=== PATIENT | male | born 1985 ===

== ENCOUNTER 2023-05-06 21:52 | Inpatient (IN) | payer MEDICAID, OTHER, SELFPAY ==
[2023-05-07 00:01] VITALS: BP 127/90; PULSE 62; RESP 18; TEMP 36.7; O2SAT 96
[2023-05-07 00:11] VITALS: BMI 30.7
--- NOTE | 2023-05-07 03:57 | PC.ADMIT ---
Patient is a 38yr old Belgian speaking male who also speaks fluent [place]. He arrived to from [facility] d/t bizarre behavior and thoughts of self harm. His family was concerned for his well being as well as theirs and the patient was brought to the hospital by police and is a section 12. The patient lives with his girlfriend and his . The patients mother who is on a visa from [place] also stays with them to help with the baby. The patient states his girlfriends sister and her son also stay with them in an apartment. The patient arrived to hospital attire, neat/well groomed, appears slightly anxious but cooperative and pleasant. Skin check administrered as well as vitals. The patient currently denies thoughts of self harm. He states he is here because of his alcohol intake. He states he drinks every few days and has a a few beers and a few nips . He is gaurded, appears to have poor insight, and is currently refusing to sign any paperwork. He states Im not trying to be rude but I dont want to sign anything right now . Patient states he doesnt take any medications and doesnt have a primary care. He states he has arthritis and nasal congestion, no medical history. Patient mentions wanting to go back to [place] and makes promotion writer feel like he is going to go with or without family. Patient took a phone call later in the shift which made him upset. He had something to eat and went to sleep. Will continue to monitor sleep and behavior overnight and continue care with team in the morning.
[2023-05-07 08:00] VITALS: BP 97/64; PULSE 71; RESP 18; TEMP 2.7; TEMP 36.9; O2SAT 96
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
[2023-05-07 09:54] LABS: Estimated Average Glucose 100 mg/dL; Hemoglobin A1c % 5.1 % (<6.0)
[2023-05-07 09:58] LABS: Alanine Aminotransferase 26 U/L (0-40); Albumin Level 4.2 g/dL (3.5-5.0); Alkaline Phosphatase 70 U/L (39-117); Aspartate Amino Transferase 18 U/L (5-37); Bilirubin Direct 0.2 mg/dL (0.0-0.5); Bilirubin Total 0.5 mg/dL (0.0-1.0); Cholesterol 178 mg/dL (<200); HDL Cholesterol 35 mg/dL (>40); LDL Cholesterol Calculated 118 mg/dL (<100); Total Protein 7.5 g/dL (6.5-8.0); Triglycerides 126 mg/dL (<150)
[2023-05-07 10:00] LABS: Ammonia 33 umol/L (13-55)
--- NOTE | 2023-05-07 11:12 | HO.PM.IMCN ---
History of Present Illness Data of Consult Service Date: 05/07/23 Primary Care Provider: Unknown Physician HPI Reason for consult: Admission H&P Pt is a 38-year-old male with a PMH significant for?chronic arthritis and swollen joints who is admitted to [facility] psychiat[facility] unit for change in his mental status, bizarre behavior, and acts of self-harm over the past 6 to [address] on a section 12 after family brought him to court for an order for treatment. Medical consult for admission H&P. Pt states he has been experiencing intermittent joint pain and swelling, especially in his hands and feet, since the age of 13. Reports seeing multiple doctors for his condition since then but with no definitive diagnosis. Symptoms usually last 2-3 days before resolving. Usually takes Tylenol for the pain. Precipitating factors are unclear, though he reports controlling outbreaks with his diet. Currently he is not experiencing any musculoskeletal or joint pain. Pt denies any other chronic conditions or acute medical complaints at this time. Review of Systems Review of Systems: Denies any acute medical complaints PMFSH Social History Household Members: Significant Other, Children and Other Household Members Other:: patients mother, his girlfriend, his new born, his girlfriends sister and Housing: Apartment Do you presently have visiting nurse or other home services: No Patient Tobacco Use Status: Current someday Tobacco user Tobacco use type: Cigarette Smoked in Last 30 Days: Yes e-Cigarette/Vaping Use: Never Used Patient Interested in Nicotine Replacement: No Patient Given Instructions on How to Stop Smoking: Yes Date Education Initiated: 05/06/23 Second Hand Smoke Exposure: No Use of substances other than those prescribed or required for medical reasons: No Currently Displaying Signs/Symptoms of Drug Intoxication Withdrawal: No Any prior treatment program specific to substance use: No Have you been hit, kicked, punched, or otherwise hurt by someone within the past year? If so, by whom?: No Do you feel safe in your current relationship?: Yes Is there a partner from a previous relationship who is making you feel unsafe now?: No Are you made to feel afraid or neglected: No Advance Directives: No Advance Directives Information Provided: No Do you have thoughts of harming others: None Do you have a plan to hurt others: No Plan Recently lost weight without trying: No How much weight loss: Not applicable Eating poorly because of decreased appetite: No Nutrition screen score: 0 Nutrition Risks: No Nutritional Risk Poor oral hygiene: No Meds Allergies Allergy/AdvReac Type Severity Reaction Status Date / Time No Known Allergies Allergy Verified 05/06/23 19:52 Active Medications: Current Medications Acetaminophen (Acetaminophen 325 Mg Tablet) 650 mg PO Q6H PRN PRN Reason: Headache/Pain Mild Scale (1-3) Al Hydroxide/Mg Hydroxide (Magnesium Hydrox/Alum Hydrox 30 Ml Oral.Susp) 30 ml PO Q6H PRN PRN Reason: Heartburn/Nausea Hydroxyzine HCl (Hydroxyzine Hcl 25 Mg Tablet) 25 mg PO Q6H PRN PRN Reason: Anxiety Magnesium Hydroxide (Milk Of Magnesia 30 Ml Oral.Susp) 30 ml PO DAILY PRN PRN Reason: Constipation Nicotine (Nicotine 21 Mg Patch.Td24) 21 mg TRANSDERMA DAILY PRN PRN Reason: smoking cessation Nicotine Polacrilex (Nicotine Polacrilex 2 Mg Gum) 4 mg BUCCAL Q2H PRN PRN Reason: Nicotine Cravings Olanzapine (Olanzapine 5 Mg Tablet) 5 mg PO TID PRN PRN Reason: agitation Trazodone HCl (Trazodone Hcl 50 Mg Tablet) 50 mg PO BEDTIME MRX1 PRN PRN Reason: Insomnia Home Medications Medication Instructions Recorded Confirmed Last Taken Type No Known Home Meds 05/07/23 05/07/23 Unknown History Physical Exam Vital Signs and Narrative: Vital Signs: Last Vital Signs Temp 36.9 F L 05/07/23 08:00 Pulse 71 05/07/23 08:00 Resp 18 05/07/23 08:00 BP 97/64 05/07/23 08:00 Pulse Ox 96 05/07/23 08:00 O2 Del Method Room Air 05/07/23 08:00 BMI result Body Mass Index 30.7 General: AOx3, no acute distress Resp: CTA bilaterally CVS: S1, S2, RRR GI: +BS, NT, no distention Skin: Warm, dry Neuro: Cranial nerves II-XII grossly intact bilaterally. Motor grossly intact bilaterally Extremities: No edema Psych: Appropriate affect Results Labs Labs: Laboratory Results - last 24 hr 05/07/23 09:00 Estimat Average Glucose 100 Hemoglobin A1c % 5.1 Total Bilirubin 0.5 Direct Bilirubin 0.2 AST 18 ALT 26 Alkaline Phosphatase 70 Ammonia 33 Total Protein 7.5 Albumin 4.2 Triglycerides 126 Cholesterol 178 LDL Cholesterol, Calc 118 H HDL Cholesterol 35 L Assessment and Plan (1) Medical clearance for psychiatric admission: Status: Acute Plan Pt is a 38-year-old male with a PMH significant for?chronic arthritis and swollen joints who is admitted to [facility] psychiat[facility] unit for change in his mental status, bizarre behavior, and acts of self-harm over the past 6 to [address] on a section 12 after family brought him to court for an order for treatment. Medical consult for admission H&P. Mood disorder Plan as per psychiatry Chronic arthritic pain in hands and feet Intermittent 3-4 day outbreaks since age 13 Currently not in acute exacerbation Tylenol for pain Pt otherwise has no chronic medical conditions or acute medical complaints. Thank you for allowing us to participate in the care of this patient. Signing off at this time. Please re-consult if any acute complaints or issues arise.
[2023-05-07 18:15] VITALS: BP 125/88; PULSE 77; RESP 16; TEMP 36.9; O2SAT 99
[2023-05-08 08:35] VITALS: BP 110/76; PULSE 70; RESP 14; TEMP 36.8; O2SAT 98
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
[2023-05-08 18:00] VITALS: BP 139/83; PULSE 80; RESP 18; TEMP 36.9; O2SAT 96
[2023-05-09 08:14] VITALS: BP 140/71; PULSE 88; RESP 16; TEMP 36.4; O2SAT 97
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
[2023-05-09 18:00] VITALS: BP 121/80; PULSE 77; RESP 16; TEMP 36.8; O2SAT 96
[2023-05-10 08:49] VITALS: BP 109/74; PULSE 64; RESP 16; TEMP 36.5; O2SAT 97
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
[2023-05-10 17:16] VITALS: BP 126/71; PULSE 70; RESP 18; TEMP 36.8; O2SAT 98
[2023-05-11 09:10] VITALS: BP 116/73; PULSE 76; RESP 16; TEMP 37.3; O2SAT 96
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
== END 2023-05-11 11:30 | disposition home or self-care (01) | DRG 751 ==
PROVIDERS: Admitting Provider Psychiatry & Neurology Psychiatry; Visit Provider Psychiatry & Neurology Psychiatry
DX: F29 Unspecified psychosis not due to a substance or known physiological condition (principal); F10.10 Alcohol abuse, uncomplicated; M19.041 Primary osteoarthritis, right hand; M19.071 Primary osteoarthritis, right ankle and foot; M19.072 Primary osteoarthritis, left ankle and foot; M19.042 Primary osteoarthritis, left hand; F17.210 Nicotine dependence, cigarettes, uncomplicated; Z71.6 Tobacco abuse counseling
CPT/HCPCS: 36415; 80061; 80076; 82140; 83036

== ENCOUNTER → 2023-05-06 21:52 | Outpatient (BNV) | payer SELFPAY | PROVIDERS: Admitting Provider Psychiatry & Neurology Psychiatry; Visit Provider Psychiatry & Neurology Psychiatry | DX: F29 Unspecified psychosis not due to a substance or known physiological condition (principal); F10.959 Alcohol use, unspecified with alcohol-induced psychotic disorder, unspecified; F10.90 Alcohol use, unspecified, uncomplicated | CPT/HCPCS: 99222; 99231; 99238 ==

== ENCOUNTER → 2023-05-06 21:52 | Outpatient (BNV) | payer SELFPAY | PROVIDERS: Admitting Provider Psychiatry & Neurology Psychiatry; Visit Provider Student in an Organized Health Care Education/Training Program | DX: Z02.2 Encounter for examination for admission to residential institution (principal) | CPT/HCPCS: 99429 ==